=== PATIENT | female | born 1965 | race Hispanic/Latino ===

== ENCOUNTER 2017-03-02 08:12 | Outpatient (CLI) | payer BC ==
[2017-03-02 08:36] LABS: Basophils % (Auto) 0.8 % (0.0-1.8); Eosinophils % (Auto) 3.4 % (0.0-4.3); Hematocrit 40.3 % (30.3-42.9); Hemoglobin 13.3 gm/dl (10.1-14.3); Mean Corpuscular HGB Conc 33 % (30-34); Mean Corpuscular Hemoglobin 31 pg (28-32); Mean Corpuscular Volume 95 fl (79-97); Platelet Count 330 K/mm3 (140-440); Red Blood Count 4.26 M/mm3 (3.65-5.03); Red Cell Distribution Width 13.3 % (13.2-15.2); White Blood Count 8.6 K/mm3 (4.5-11.0)
[2017-03-02 09:07] LABS: Alanine Aminotransferase 16 units/L (7-56); Albumin 3.5 g/dL (3.9-5); Albumin/Globulin Ratio 1.3 %; Alkaline Phosphatase 34 units/L (35-129); Anion Gap 16 mmol/L; Blood Urea Nitrogen 15 mg/dL (7-17); Calcium 8.2 mg/dL (8.4-10.2); Carbon Dioxide 23 mmol/L (22-30); Chloride 101.9 mmol/L (98-107); Cholesterol 147 mg/dL (50-199); Glucose 97 mg/dL (65-100); HDL Cholesterol 86 mg/dL (40-59); LDL Cholesterol,Direct 47 mg/dL (50-130); Potassium 4.3 mmol/L (3.6-5.0); Sodium 137 mmol/L (137-145); Total Protein 6.2 g/dL (6.3-8.2); Triglycerides 70 mg/dL (2-149)
--- NOTE | 2017-03-02 10:50 | Ultrasound Report ---
Pelvic ultrasound: Nonfocal pelvic pain. Endovaginal and transabdominal imaging demonstrates an anteverted uterus measuring 2.3 x 4.7 x 8.7 cm. The myometrium is echogenically homogeneous. There is a deformity in the midline lower uterine segment anteriorly with echogenic density projecting outside the expected uterine contour and seemingly associated with an echo lucent collection located just anterior to the endometrium but extending along with the echogenic density beyond the uterine wall. There is a low level echoes within the lucency. The patient has history of . The endometrial thickness is 5 mm. Color flow shows no flow within the echolucent collection and a relatively normal flow pattern through the remainder of the uterus. The left ovary measures 2 cm with a small follicle. The right ovary measures 1.8 cm and is echogenically unremarkable. Impressions: Abnormal lower uterine segment possibly related to . Questionable chronicity. Dehiscence of anterior uterine wall is raised. Recommendation: Followup ultrasound to reevaluate for any progressive changes.
== END 2017-03-02 08:13 | disposition home or self-care (01) ==
LOC: US 08:12
PROVIDERS: ATTEND Family Medicine
DX: Z13.29 Encounter for screening for other suspected endocrine disorder (principal); Z00.01 Encounter for general adult medical examination with abnormal findings; E78.1 Pure hyperglyceridemia; N85.4 Malposition of uterus; R10.2 Pelvic and perineal pain
CPT/HCPCS: 36415; 76830; 76856; 80053; 80061; 84443; 85025